=== PATIENT | male | born 1955 | race Caucasian/White ===

== ENCOUNTER 2020-05-01 14:49 | Emergency (ER) | payer OTHER, SELFPAY ==
[2020-05-01 15:02] VITALS: BP 159/84; PULSE 77; RESP 16; TEMP 36.4; O2SAT 98
--- NOTE | 2020-05-01 16:04 | ED_ITS ---
HPI - Wound/Laceration <BRENDA Hare - Last Filed: 05/01/20 16:09> General Chief Complaint: Wound/Laceration Stated Complaint: left hand ring finger cut today Time Seen by Provider: 05/01/20 15:08 Source: patient Mode of arrival: Ambulatory Limitations: no limitations History of Present Illness HPI narrative: The patient is a 64-year-old male nonsmoker who denies pertinent medical history presents with a chief complaint of a laceration to his left hand ring finger. To arrival. Tetanus in the past 2-3 years. Denies any concern for foreign body. States it is a new bleed. States full range of motion. No acute concerns for chip fracture. Review of Systems <BRENDA Hare - Last Filed: 05/01/20 16:09> Review of Systems Narrative: GENERAL: Denies chills, fatigue, malaise, fever, sweats. HEENT: Denies sinus pain, ear pain, sore throat, difficulty swallowing, dizziness. RESPIRATORY: Denies dyspnea, cough, wheezing, hemoptysis, sputum. CARDIOVASCULAR: Denies chest pain, palpitations, orthopnea, edema, GASTROINTESTINAL: Denies nausea, vomiting, abdominal pain, diarrhea, constipation, melena. : Denies dysuria, frequency, incontinence, hematuria, urinary retention. MUSCULOSKELETAL: denies weakness, joint pain, or bony pain SKIN: See HPI NEUROLOGIC: Denies weakness, headache, numbness, change in speech, confusion, seizures, incoordination. PSYCHIATRIC: No concerning psychosocial issues. 12 point review of systems is negative except for those stated above Exam <BRENDA Hare - Last Filed: 05/01/20 16:09> Narrative Exam Narrative: GENERAL: This is a well-nourished, well-developed patient, in no acute distress HEAD: Atraumatic. Normocephalic. No temporal or scalp tenderness. EYES: Pupils equal round and reactive. Extraocular motions intact. No scleral icterus. No injection or drainage. ENT: Nose without bleeding, purulent drainage or septal hematoma. Throat without erythema, tonsillar hypertrophy or exudate. Uvula midline. Airway patent. NECK: Trachea midline. No JVD or lymphadenopathy. Supple, nontender, no meningeal signs. CARDIOVASCULAR: Regular rate and rhythm RESPIRATORY: No cough. No increased respiratory effort. No accessory muscle use. EXTREMITIES: Left 4th digit with 0.5 cm linear laceration to distal phalanx on palmar aspect. No active bleeding. Able to fully flex and extend left 4th digit against resistance. Capillary refill less than 2 seconds. Positive left radial pulse. BACK: Nontender without deformity or crepitance. No flank tenderness. NEURO: AOx3. SKIN: See extremity exam Initial Vital Signs Initial Vital Signs: Vital Signs Temperature 97.5 F L 05/01/20 15:02 Pulse Rate 77 05/01/20 15:02 Respiratory Rate 16 05/01/20 15:02 Blood Pressure 159/84 H 05/01/20 15:02 Pulse Oximetry 98 05/01/20 15:02 <Rosie Mcgarry DO - Last Filed: 05/02/20 08:14> Initial Vital Signs Initial Vital Signs: Vital Signs Temperature 97.5 F L 05/01/20 15:02 Pulse Rate 77 05/01/20 15:02 Respiratory Rate 16 05/01/20 15:02 Blood Pressure 159/84 H 05/01/20 15:02 Pulse Oximetry 98 05/01/20 15:02 Procedures <BRENDA Hare - Last Filed: 05/01/20 16:09> Laceration Repair Laceration 1: Site: hand Size (cm): 0.5 Description: linear Depth: simple, single layer Pre-repair: wound explored and irrigated extensively (cleansed with iodine) Skin layer closed with: steri-strips Scores <BRENDA Hare - Last Filed: 05/01/20 16:09> GCS [place] coma scale eye opening: Spontaneous [place] coma scale verbal response: Orientated [place] coma scale motor response: Obey commands [place] coma scale total score: 15 Course <BRENDA Hare - Last Filed: 05/01/20 16:09> Vital Signs Vital signs: Vital Signs - 8 hr 05/01/20 15:02 Temperature 97.5 F L Pulse Rate 77 Respiratory Rate 16 Blood Pressure 159/84 H Pulse Oximetry 98 <Rosie Mcgarry DO - Last Filed: 05/02/20 08:14> Vital Signs Vital signs: Vital Signs - 8 hr 05/01/20 15:02 Temperature 97.5 F L Pulse Rate 77 Respiratory Rate 16 Blood Pressure 159/84 H Pulse Oximetry 98 MDM - Wound/Laceration <ITA Hare-BC - Last Filed: 05/01/20 16:09> [facility] Narrative Medical decision making narrative: The patient is a 64-year-old male who presents with a chief complaint of laceration just prior to arrival. Tetanus is up-to-date. Closed as per procedural note. Tolerated well. Patient declined x-ray. No active bleeding. Discussed monitor for signs and symptoms of infection as well as keeping his lack clean and dry. Patient has no questions or concerns upon discharge and states understanding of return precautions the Discharge Plan Departure Patient Disposition: Home Clinical Impression: Laceration Instructions: How to Care for a Laceration After Repair, DI for Laceration Repair-Skin Closure Strips Activity Restrictions/Additional Instructions: Thank you for trusting us with Your care today. As discussed, please keep your finger clean and dry. Please monitor for signs of infection such as extending redness, purulent drainage etcetera Please follow-up with primary care provider. Please come back to the emergency department for any acute concerns such as decreased circulation to your finger. Referrals: Hakeem West MD [Primary Care Provider] - <Rosie Mcgarry DO - Last Filed: 05/02/20 08:14> Cosign ED Attending Faribaature Attestation: I was immediately available in the department for consultation. Documentation has been reviewed. I agree with assessment and plan.
== END 2020-05-01 16:18 | disposition home or self-care (01) ==
PROVIDERS: Emergency Provider Nurse Practitioner Family; PCP Family Medicine
DX: S61.215A Laceration without foreign body of left ring finger without damage to nail, initial encounter (principal); X58.XXXA Exposure to other specified factors, initial encounter
CPT/HCPCS: 99282

== ENCOUNTER 2021-12-13 07:17 | Emergency (ER) | payer OTHER, SELFPAY ==
[2021-12-13 07:29] VITALS: BP 176/100; PULSE 63; RESP 16; TEMP 36.3; O2SAT 95; BMI 24.8
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
[2021-12-13 08:50] VITALS: BP 145/80; PULSE 70; RESP 18; O2SAT 98
== END 2021-12-13 08:50 | disposition home or self-care (01) ==
PROVIDERS: Emergency Provider Emergency Medicine; PCP Family Medicine Sports Medicine
DX: S16.1XXA Strain of muscle, fascia and tendon at neck level, initial encounter (principal); V89.2XXA Person injured in unspecified motor-vehicle accident, traffic, initial encounter
CPT/HCPCS: 73030; 99283; 99284

== ENCOUNTER → 2022-01-15 10:22 | Outpatient (CLI) | payer OTHER, SELFPAY ==
--- NOTE | 2022-01-15 | DI.MRI.S_ITS ---
PROCEDURE: MR CERVICAL SPINE WO/W CON INDICATIONS: NECK PAIN TECHNIQUE: Noncontrast sagittal T1 spin echo and T2 fast spin echo, sagittal STIR, foraminal oblique sagittal T2 fast spin echo, axial gradient echo or T2 fast spin echo through the cervical spine. After the administration of contrast, axial and sagittal T1 spin echo with fat saturation through the cervical spine. COMPARISON: None. FINDINGS: Image quality: This examination is limited by involuntary motion artifact. Alignment and curvature: There is overall straightening of the normal cervical lordosis. No focal AP alignment abnormality is seen. Marrow: Marrow is normal in overall signal, without suspicious enhancement. Spinal cord: Visualized spinal cord has normal size and signal. No cerebellar tonsillar herniation. No abnormal intramedullary enhancement. Paraspinous soft tissues: No paravertebral masses or suspicious enhancement. C2-3: The disc height is well-preserved. Loss of disc signal is seen at this level. Reactive marrow endplate changes are seen anteriorly, which are hypointense on T1-weighted imaging and hyperintense on T2 weighted imaging, which is most consistent with edema (Modic type I changes). A mild degree of generalized disc osteophyte complex is seen. There is soue-tn-lvsxwxky right-sided and mild left-sided facet hypertrophy. There is moderate right-sided and no significant left-sided neural foraminal narrowing. Minimal central canal narrowing is seen. C3-4: The disc height is well-preserved. Loss of disc signal is seen at this level. Mild to moderate disc osteophyte complex is seen. Mild to moderate facet hypertrophy is seen. Moderate bilateral neural foraminal narrowing is seen. Mild to moderate central canal narrowing is seen, with associated mild mass effect upon the ventral spinal cord. C4-5: Nwne-ux-xhhnxfux loss of disc height and disc signal can be seen. At least moderate disc osteophyte complex is seen, with a central disc osteophyte protrusion. Uncovertebral joint hypertrophy is seen at this level. Moderate facet hypertrophy is seen, left worse than right. There is moderate to severe bilateral neural foraminal narrowing seen, left worse than right. Moderate to severe central canal narrowing is seen, with associated ventral cord flattening. C5-6: Moderate loss of disc height is seen. Loss of disc signal is seen. Moderate generalized disc osteophyte complex is seen. There is a central/right disc osteophyte protrusion seen. There is erup-qz-rgjakrou right-sided and moderate left-sided facet hypertrophy. There is moderate to severe bilateral neural foraminal narrowing seen. At least moderate central canal narrowing is seen. There is associated mass effect upon the ventral spinal cord. C6-7: Mild loss of disc height is seen. Loss of disc signal is seen. Moderate generalized disc osteophyte complex is seen. There is a central/right disc osteophyte protrusion, which continues into the right neural foramen. Mild to moderate facet hypertrophy is seen. There is moderate to severe right-sided and at least moderate left-sided neural foraminal narrowing. Minimal central canal narrowing is seen. C7-T1: The disc height is well-preserved. Loss of disc signal is seen at this level. No significant neural foraminal or central canal narrowing can be seen. IMPRESSION: Multiple levels of cervical spine degenerative change are seen, which are overall worst at C4-C5 and C5-C6. No abnormal enhancement is seen. Dictated by: Sky Jeter M.D. on 01/15/2022 at 15:00 Approved by: Sky Jeter M.D. on 01/15/2022 at 15:04
--- NOTE | 2022-01-15 | DI.RAD.S_ITS ---
PROCEDURE: XR EYE FOREIGN BODY LT INDICATIONS: BUCKLE IN EYE TECHNIQUE: A single view of the orbits was acquired. COMPARISON: None. FINDINGS: Soft tissues: No metallic foreign bodies are visualized around the orbits. Bones: Bony structures appear unremarkable. Visualized sinuses appear clear. IMPRESSION: No metallic foreign body identified in the region of the orbits. Dictated by: Leandro Turk M.D. on 01/15/2022 at 10:52 Approved by: Leandro Turk M.D. on 01/15/2022 at 10:53
== END ==
PROVIDERS: PCP Family Medicine Sports Medicine; Referring Provider Neurological Surgery; Visit Provider Neurological Surgery
DX: M47.812 Spondylosis without myelopathy or radiculopathy, cervical region (principal); T15.92XA Foreign body on external eye, part unspecified, left eye, initial encounter; M54.2 Cervicalgia; X58.XXXA Exposure to other specified factors, initial encounter
CPT/HCPCS: 70030; 72156; A9579

== ENCOUNTER → 2024-10-06 06:53 | Outpatient (CLI) | payer MEDICARE, SELFPAY ==
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
== END ==
LOC: US 06:53
PROVIDERS: PCP Family Medicine Sports Medicine; Referring Provider Family Medicine Sports Medicine; Visit Provider Family Medicine Sports Medicine
DX: R31.9 Hematuria, unspecified (principal)
CPT/HCPCS: 76770

== ENCOUNTER → 2024-12-01 08:25 | Outpatient (CLI) | payer MEDICARE, SELFPAY ==
--- NOTE | 2024-12-01 08:27 | DI.CT.S_ITS ---
PROCEDURE: CT PELVIS W CON INDICATIONS: 69 y/o M, please eval for prostatic abscess TECHNIQUE: After the administration of intravenous contrast, 5 mm thick sections acquired from the iliac crests to the symphysis. 5 mm coronal and sagittal reformats were acquired. For radiation dose reduction, the following was used: automated exposure control, adjustment of mA and/or kV according to patient size. COMPARISON: None. FINDINGS: Image quality: Diagnostic. PELVIS: Peritoneum and Bowel: Bowel loops demonstrate normal wall thickness and caliber. No free fluid or air. Pelvic Organs: No pelvic mass. Moderate to severe prostatomegaly. No abscess of the prostate identified. Bladder: A Bonilla catheter is in place. There is bladder wall thickening. The bladder is decompressed. Pelvic Nodes: No enlarged lymph nodes. Miscellaneous: No inguinal hernias are seen. Bones: No aggressive osseous abnormality. IMPRESSION: 1. Moderate to severe prostatomegaly without abscess of the prostate. 2. A Bonilla catheter is in place. There is bladder wall thickening. 3. Sigmoid diverticulosis. Dictated by: Imtiaz Charlton M.D. on 12/01/2024 at 9:45 Approved by: Imtiaz Charlton M.D. on 12/01/2024 at 9:47
[2024-12-01 08:51] LABS: Estimated Glomerular Filt Rate > 60 mL/min (>60)
== END ==
PROVIDERS: PCP Family Medicine Sports Medicine; Referring Provider Family Medicine Sports Medicine; Visit Provider Urology
DX: N40.0 Benign prostatic hyperplasia without lower urinary tract symptoms (principal); K57.30 Diverticulosis of large intestine without perforation or abscess without bleeding; R30.0 Dysuria; R33.9 Retention of urine, unspecified; R36.9 Urethral discharge, unspecified
CPT/HCPCS: 36415; 72193; 82565

== ENCOUNTER 2025-01-02 08:58 | Emergency (ER) | payer MEDICARE, SELFPAY ==
[2025-01-02 09:06] VITALS: BP 154/83; PULSE 97; RESP 18; TEMP 36.5; O2SAT 97; BMI 25.1
--- NOTE | 2025-01-02 10:08 | ED_ITS ---
<Statement entered by Feng Seo, - 01/02/25 20:34> Co-sign statement: I was available for consultation during this patient's emergency department visit. This chart is being signed by myself for administrative purposes only. I do not have direct contact with this patient during this visit. They were seen independently by the [facility]. HPI - Recheck/Abnormal Lab/Rx General Chief Complaint: Recheck/Abnormal Lab/Rx Stated Complaint: Get a picc line put in arm , per urologists Time Seen by Provider: 01/02/25 10:08 Source: patient Mode of arrival: Ambulatory Related Data Home Medications ?Medication ?Instructions ?Recorded ?Confirmed metformin 500 mg tablet 500 mg PO DAILY 11/23/2404/22 ramipril 5 mg capsule 5 mg PO TID 11/23/24 5 simvastatin 20 mg tablet 20 mg PO DAILY 11/23/2404/22 Previous Rx's ?Medication ?Instructions ?Recorded levofloxacin 500 mg tablet 500 mg PO DAILY #42 tabs tamsulosin 0.4 mg capsule 0.8 mg (2 x 0.4 mg) PO DAILY #180 12/27/24 caps Allergies Allergy/AdvReac Type Severity Reaction Status Date / Time NKA Allergy Uncoded 01/02/25 09:06 Patient History Medical History Healthy adult Family History Brother CVA (cerebral vascular accident) Diabetes mellitus Hypertension Social History marital status: lives independently: Yes Tobacco: How many years used: 20 alcohol intake: current caffeine: Yes Type(s) of exercise: aerobic and weight lifting frequency: 3-4 times per week duration: > 90 minutes/day Alcohol type: beer Exam Initial Vital Signs Initial Vital Signs: Vital Signs Temperature 97.7 F 01/02/25 09:06 Pulse Rate 97 H 01/02/25 09:06 Respiratory Rate 18 01/02/25 09:06 Blood Pressure 154/83 H 01/02/25 09:06 Pulse Oximetry 97 01/02/25 09:06 Oxygen Delivery Method Room Air 01/02/25 09:06 Course Vital Signs Vital signs: Vital Signs - 8 hr 01/02/25 09:06 Temperature 97.7 F Pulse Rate 97 H Respiratory Rate 18 Blood Pressure 154/83 H Pulse Oximetry 97 Oxygen Delivery Method Room Air Discharge Plan Departure Prescriptions: No Action metformin 500 mg tablet 500 mg PO DAILY simvastatin 20 mg tablet 20 mg PO DAILY ramipril 5 mg capsule 5 mg PO TID levofloxacin 500 mg tablet 500 mg PO DAILY Qty: 42 0RF tamsulosin 0.4 mg capsule 0.8 mg PO DAILY Qty: 180 0RF Referrals: Luis Rice DO [Primary Care Provider, Medical]
--- NOTE | 2025-01-02 12:28 | ED_ITS ---
<Statement entered by Feng Seo, DO - 01/02/25 20:05> Co-sign statement: I was available for consultation during this patient's emergency department visit. This chart is being signed by myself for administrative purposes only. I do not have direct contact with this patient during this visit. They were seen independently by the APC. HPI - Recheck/Abnormal Lab/Rx General Chief Complaint: Recheck/Abnormal Lab/Rx Stated Complaint: Get a picc line put in arm , per urologists Time Seen by Provider: 01/02/25 10:08 Source: patient Mode of arrival: Ambulatory History of Present Illness HPI narrative: Mr. Schofield is a pleasant 69-year-old male with a past medical history of incomplete bladder emptying with 18 Lithuanian coude indwelling Bonilla catheter, ESBL positive UTI, pre-DM who presents to the emergency department for ?placement of PICC line?. Mr. Schofield states that in September of this year he 1st had a Bonilla catheter placed for incomplete bladder emptying and he has been dealing with UTIs since then. He has been on levofloxacin and amoxicillin. He saw Urology Dr. Ayala on 12/27/24 and at that time he had a new catheter placed and was referred to Infectious Disease for treatment of ESBL UTI. Patient's urine culture on 11/28/2024 was positive for ESBL E coli, susceptible only to ertapenem, meropenem, piperacillin/tazobactam. Patient states there was a miscommunication at that time, reports he had been recommended to go to the ER for a PICC line and IV antibiotics but did not at that time. After seeing urology 12/27/24 patient attempted to follow up with infectious disease as he was advised however can not get an appointment for 30 days therefore he has come to the ER today for hopes of a PICC line and treatment of his ESBL UTI. Patient reports that he has been dealing with fatigue and nighttime fevers for many weeks now. States his urine output is cloudy. He is currently taking levofloxacin. No flank pain or hematuria. Related Data Home Medications ?Medication ?Instructions ?Recorded ?Confirmed metformin 500 mg tablet 500 mg PO DAILY 11/23/2404/22 ramipril 5 mg capsule 5 mg PO TID 11/23/24 5 simvastatin 20 mg tablet 20 mg PO DAILY 11/23/2404/22 Previous Rx's ?Medication ?Instructions ?Recorded levofloxacin 500 mg tablet 500 mg PO DAILY #42 tabs tamsulosin 0.4 mg capsule 0.8 mg (2 x 0.4 mg) PO DAILY #180 12/27/24 caps fosfomycin tromethamine 3 gram 3 g PO Q3D 1 dose #1 ea 01/02/25 oral packet Allergies Allergy/AdvReac Type Severity Reaction Status Date / Time NKA Allergy Uncoded 01/02/25 09:06 Review of Systems Review of Systems ROS Unobtainable: All systems reviewed & are unremarkable except as noted in HPI and below Patient History Medical History Healthy adult Family History Brother CVA (cerebral vascular accident) Diabetes mellitus Hypertension Social History marital status: lives independently: Yes Tobacco: How many years used: 20 alcohol intake: current caffeine: Yes Type(s) of exercise: aerobic and weight lifting frequency: 3-4 times per week duration: > 90 minutes/day Alcohol type: beer Exam Narrative Exam Narrative: GENERAL: 69 year old patient appears stated age. Well-developed patient, in no acute distress. HEAD: Atraumatic. Normocephalic. EYES: No scleral icterus. No injection or drainage. NECK: Trachea midline. Cervical ROM intact. CARDIOVASCULAR: Regular rate and rhythm. RESPIRATORY: ?Nonlabored respirations. ?Speaking in clear, full sentences. ?Clear to auscultation. Breath sounds equal bilaterally. No wheezes, rales, or rhonchi. ? GASTROINTESTINAL: Abdomen soft, non-tender, nondistended. Bs present. EXTREMITIES: No LE edema. BACK: No CVA tenderness BL. NEURO: AOx3. ?Clear speech. ?Moves all 4 extremities appropriately. Ambulatory. SKIN: No rash or erythema of visible areas Initial Vital Signs Initial Vital Signs: Vital Signs Temperature 97.7 F 01/02/25 09:06 Pulse Rate 97 H 01/02/25 09:06 Respiratory Rate 18 01/02/25 09:06 Blood Pressure 154/83 H 01/02/25 09:06 Pulse Oximetry 97 01/02/25 09:06 Oxygen Delivery Method Room Air 01/02/25 09:06 Course Orders Ordered: ED Orders 01/02/25 12:55 Consult to EQUIPMENT MONITOR PHOTOTYPESETTING - Pomology Teacher Stat 01/02/25 13:45 Blood Culture Stat CBC Auto Diff [Complete Blood Count AUTO DIFF] Stat CMP [Comprehensive Metabolic Panel] Stat CRP [C-Reactive Protein Quant] Stat ESR [Erythrocyte Sedimentation Rate] Stat Lactate (Lactic Acid) Stat 01/02/25 13:55 Urinalysis and Microscopic Stat Urine Culture Stat Discontinued Medications Lidocaine HCl (Lidocaine 2% (Glydo) 6 Ml Gel) 6 ml TOP NOW ONE Stop: 01/02/25 15:15 Last Admin: 01/02/25 15:20 Dose: 6 ml Vital Signs Vital signs: Vital Signs - 8 hr 01/02/25 14:43 01/02/25 17:02 Pulse Rate 75 85 Respiratory Rate 18 Blood Pressure 115/63 131/77 Pulse Oximetry 96 96 Oxygen Delivery Method Room Air Room Air MDM - Recheck/Abnormal Lab/Rx Medical Records Attestation: I reviewed the patient's medical records. Lab Data 01/02/25 13:45 01/02/25 13:45 Labs: Lab Results 01/02/25 01/02/25 Range/Units 13:45 13:55 WBC 4.0 L (4.5-11.0) X10^3/uL RBC 4.24 L (4.5-5.9) X10^6/uL Hgb 13.4 L (13.5-17.5) g/dL Hct 39.5 L (41-53) % MCV 93.2 (80-100) fL MCH 31.6 (26-34) PG MCHC 33.9 (30-36) % RDW 13.8 (11.6-14.8) % Plt Count 191 (150-400) X10^3/uL Neut % (Auto) 46.3 L (50-75) % Lymph % (Auto) 32.3 (25-40) % Beadle % (Auto) 10.7 (3-14) % Eos % (Auto) 10.1 H (2-4) % Baso % (Auto) 0.6 (0-2) % Neut # (Auto) 1900 (6923-2656) /uL Lymph # (Auto) 1300 (6783-5033) /uL Beadle # (Auto) 400 (0-900) /uL Eos # (Auto) 400 (0-450) /uL Baso # (Auto) 0 (0-100) /uL ESR 15 (0-15) MM/HR Sodium 137 (137-145) mmol/L Potassium 4.1 (3.4-5.1) mmol/L Chloride 103 (98-107) mmol/L Carbon Dioxide 25 (22-32) mmol/L BUN 19 (9-20) mg/dL Creatinine 0.64 L (0.66-1.25) mg/dL Estimated GFR > 60 (>60) mL/min BUN/Creatinine Ratio 29.7 H (6-22) Glucose 161 H (70-99) mg/dL Lactate 1.9 (0.7-2.1) mmol/L Calcium 8.9 (8.4-10.2) mg/dL Total Bilirubin 0.6 (0.2-1.3) mg/dL AST 29 (17-59) IU/L ALT 23 (<50) IU/L Alkaline Phosphatase 73 (38-126) U/L C-Reactive Protein < 0.5 (<1.0) mg/dL Total Protein 6.6 (6.3-8.2) g/dL Albumin 4.1 (3.5-5.0) g/dL Globulin 2.5 (1.7-4.1) g/dL Albumin/Globulin Ratio 1.6 (1.0-2.8) Urine Color Yellow Urine Appearance Clear Urine pH 6.0 (4.5-8.0) Ur Specific [place] 1.020 (1.000-1.035) Urine Protein 2+ H (Negative) Urine Glucose (UA) Negative (Negative) g/dL Urine Ketones Negative (NEGATIVE) Urine Occult Blood 3+ H (Negative) Urine Nitrate Negative (Negative) Urine Bilirubin Negative (NEGATIVE) Urine Urobilinogen 1.0 (0.2) E.U./dL Ur Leukocyte Esterase 2+ H (NEGATIVE) Urine RBC 1-5/hpf (0-5/HPF) Urine WBC 30-100/hpf H (0-5/HPF) Ur Squamous Epith Cells None seen (0-5/HPF) Urine Bacteria Moderate (10-30) H (None) Ur Culture Indicated? Specimen cultured Vol Urine Centrifuged Low vol <10ml (spun) A MDM Narrative Medical decision making narrative: 69-year-old male with a past medical history of incomplete bladder emptying with 18 Lithuanian coude indwelling Bonilla catheter, ESBL positive UTI, pre-DM who presents to the emergency department for ?placement of PICC line?. Differential diagnosis includes but is not limited to ESBL UTI, bacteremia, etc. On exam patient is in no acute distress, nontoxic appearing, vital signs in triage appropriate with mildly elevated heart rate 97. Patient has had 2 outpatient urine cultures revealing ESBL E coli susceptible only to ertapenem, meropenem, Zosyn. He has been on oral Levaquin. He has been experiencing cloudy urine in his Bonilla catheter and nighttime fevers for many weeks now. Urology Dr. Ayala referred to Infectious Disease for PICC and IV antibiotics however patient is unable to see infectious disease at [facility] for over a month. Therefore he was advised to come to the ER to expedite this process. I called and spoke with Dr. Ayala who clarified everything for me, states that patient does not need another urine culture today, Dr. Ayala is unable to order the outpatient PICC line or antibiotics and recommends that patient be admitted to the hospital if this can not be set up outpatient. I touch base with the hospitalist, Dr. Hollingsworth, who agrees with this plan, recommends getting case management involved to see if patient can be set up for outpatient infusions. I spoke with pharmacy, James, who recommends ertapenem as this is dose 1 g once daily and would be the easiest outpatient option. Plan to obtain CBC, CMP, lactic, inflammatory markers, blood cultures. We will try to consult with Infectious Disease to figure out a plan for either inpatient or outpatient management. Lab work reassuring with normal/slightly low WBC count 4.0, hemoglobin 13.4, platelets 191. Sodium 137, potassium 4.1, BUN 19 creatinine 0.64. Glucose 161. Negative ESR, CRP. 1430: Discussed case with [facility] infectious disease Dr. Marily Canales. She will call back, suspects patient is not having an infection but may be colonized. 1455: Discussed case again with [facility] infectious disease Dr. Marily Canales. She does not suspect patient is having active infection but is having colonization, does not want him admitted or IV antibiotics or PICC line at this time as patient has reassuring vital signs, lab work. She spoke with her office and they we will get the patient scheduled this week for an appointment, likely Wednesday 1:30 p.m., her medical assistance we will call the patient. She recommended the patient stop Levaquin as it is resistant. She does not recommend any antibiotics at this time however if possible she does advise a catheter exchange with a clean urine. If any antibiotics are warranted right now due to patient concern or urinalysis, she recommends fosfomycin 3 g once with the understanding this is not listed on the urine culture could potentially still be resistant. She recommends the patient go home, only return to the ER if he has documented fevers, shaking chills, severe flank pain or other concerns. Patient would like to proceed with catheter exchange for fresh urine sample/culture. I did call Dr. Ayala, urology, back and updated him on the plan of care, he is OK with the pt having his catheter exchanged in the ER and supports infectious diseases antibiotic decisions. Catheter exchanged by nursing staff without difficulty. Clean urine sample was sent for micro and culture, it does reveal bacteria, white blood cells, no nitrites. After shared decision-making with the patient, I did prescribe him 3 g of fosfomycin which she would like to take tomorrow, discontinue levofloxacin, stressed the importance of answering phone caused as he will be scheduled for infectious disease appointment this week. We discussed very strict ER return precautions including but not limited to fever, chills, flank pain, abdominal pain, any new or worsening symptoms, or other concerns. Patient his verbalized understanding of all information and are agreeable with the plan. He is ambulatory and stable for discharge home, VS WNL. Discharge Plan Departure Patient Disposition: Home Clinical Impression: ESBL E. coli carrier, Chronic indwelling Bonilla catheter Instructions: DI for Extended Spectrum Beta-Lactamase Infection Activity Restrictions/Additional Instructions: Dear Mr. Schofield, Thank you for coming to the emergency department. Today you were evaluated for outpatient urine culture revealing ESBL infection only susceptible to IV antibiotics. I spoke with your urologist, Dr. Ayala, and [facility] infectious disease Dr. Marily Canales, multiple times today about your case. The infectious disease office is going to call you to schedule an appointment this week. At this time, Infectious Disease would like you to stop taking levofloxacin. You have been prescribed an oral antibiotic called to fosfomycin, to take 1 time, as we discussed. At your infectious disease appointment, they will discuss further management options for you. However is essential that you return to the ER immediately if you develop fevers 100.4 ? F or higher, shaking chills, flank pain, or any other new or worsening or concerning symptoms. Please follow up with your primary care doctor within the next 2-3 days for ER follow-up. (If you do not have a PCP you can call [phone]. ?to schedule an appointment with an [facility] Primary Care Provider) IF YOU DEVELOP ANY NEW OR WORSENING SYMPTOMS, RETURN TO THE ER! Please read the attached instructions, they highlight more specific treatments and interventions for you at home. Thank you for letting me participate in your care, Yokasta Lyman PA-C Prescriptions: New fosfomycin tromethamine 3 gram packet 3 g PO Q3D Qty: 1 0RF No Action metformin 500 mg tablet 500 mg PO DAILY simvastatin 20 mg tablet 20 mg PO DAILY ramipril 5 mg capsule 5 mg PO TID levofloxacin 500 mg tablet 500 mg PO DAILY Qty: 42 0RF tamsulosin 0.4 mg capsule 0.8 mg PO DAILY Qty: 180 0RF Referrals: Luis Rice DO [Primary Care Provider, Medical] Stand Alone Forms: Patient Portal/API
[2025-01-02 13:58] LABS: Add Manual Diff / Slide Review NO; Hematocrit 39.5 % (41-53); Hemoglobin 13.4 g/dL (13.5-17.5); Lymphocytes Absolute Auto 1300 /uL (1100-4500); Mean Corpuscular HGB Conc 33.9 % (30-36); Mean Corpuscular Hemoglobin 31.6 PG (26-34); Mean Corpuscular Volume 93.2 fL (80-100); Platelet Count 191 X10^3/uL (150-400)
[2025-01-02 14:08] LABS: Alanine Aminotransferase 23 IU/L (<50); Albumin 4.1 g/dL (3.5-5.0); Albumin Globulin Ratio 1.6 (1.0-2.8); Alkaline Phosphatase 73 U/L (38-126); Blood Urea Nitrogen 19 mg/dL (9-20); Calcium 8.9 mg/dL (8.4-10.2); Carbon Dioxide 25 mmol/L (22-32); Chloride 103 mmol/L (98-107); Estimated Glomerular Filt Rate > 60 mL/min (>60); Globulin 2.5 g/dL (1.7-4.1); Glucose 161 mg/dL (70-99); HEMOLYSIS 24 (0-50); Potassium 4.1 mmol/L (3.4-5.1); Sodium 137 mmol/L (137-145); Total Protein 6.6 g/dL (6.3-8.2)
[2025-01-02 14:09] LABS: Lactate (Lactic Acid) 1.9 mmol/L (0.7-2.1)
[2025-01-02 14:43] VITALS: BP 115/63; PULSE 75; O2SAT 96
--- NOTE | 2025-01-02 15:08 | CM.SWNOTE ---
ED GSE MECHANIC Note ED provider initially consults GSE MECHANIC to assist with coordination of setting up outpatient IV antibiotics, after ED provider consults with infectious disease it is reported that IV antibiotics are not recommended at this time and the [facility] clinic can see patient this week. ED GSE MECHANIC consult no longer needed at this time. Patient to d/c to home upon medical clearance, patient to f/u with infectious disease outpatient clinic. KIMBERLY HawkinsSW
[2025-01-02] MEDS: LIDOCAINE 2% (GLYDO) 6 ML GEL TOP (15:20)
[2025-01-02 16:08] LABS: Appearance Urine UA CLEAR; Bilirubin Urine UA NEGATIVE (NEGATIVE); Color Urine UA YELLOW; Glucose Urine UA NEGATIVE (Negative); Ketones Urine UA NEGATIVE (NEGATIVE); Leukocyte Esterase Urine UA 2+ (NEGATIVE); Nitrite Urine UA NEGATIVE (Negative); Occult Blood Urine UA 3+ (Negative); Protein Urine UA 2+ (Negative); Specific Gravity Urine UA 1.020 (1.000-1.035); Urobilinogen Urine UA 1.0 E.U./dL (0.2); pH Urine UA 6.0 (4.5-8.0)
--- NOTE | 2025-01-02 16:13 | PC.NURSE ---
Patient came in with 18F coude catheter that was placed elsewhere. [facility] ordered to remove this catheter and replace with new one. New 18F coude clinton catheter placed by this RN today 01/02/25.
[2025-01-02 16:19] LABS: Culture Indicated Urine Specimen Cultured
[2025-01-02 17:02] VITALS: BP 131/77; PULSE 85; RESP 18; O2SAT 96
== END 2025-01-02 17:04 | disposition home or self-care (01) ==
PROVIDERS: Emergency Provider Physician Assistant; PCP Family Medicine Sports Medicine
DX: R53.83 Other fatigue (principal); R50.9 Fever, unspecified; Z22.358 Carrier of other Enterobacterales; Z97.8 Presence of other specified devices
CPT/HCPCS: 36415; 80053; 81001; 83605; 85025; 85651; 86140; 87040; 87077; 87086; 87186; 99282; 99283

== ENCOUNTER → 2025-01-24 13:59 | Outpatient (CLI) | payer MEDICARE, SELFPAY | PROVIDERS: PCP Family Medicine Sports Medicine; Visit Provider Urology | DX: R33.9 Retention of urine, unspecified (principal); R30.0 Dysuria | CPT/HCPCS: 51798; 81002; 87086; 99213 ==

== ENCOUNTER → 2025-02-15 08:09 | Outpatient (CLI) | payer MEDICARE, SELFPAY | PROVIDERS: PCP Family Medicine Sports Medicine; Visit Provider Urology | DX: A49.9 Bacterial infection, unspecified (principal); Z16.12 Extended spectrum beta lactamase (ESBL) resistance; R33.9 Retention of urine, unspecified | CPT/HCPCS: 87086 ==

== ENCOUNTER 2025-02-27 06:02 | Day surgery (SDC) | payer MEDICARE, SELFPAY ==
[2025-02-12 15:55] VITALS: BMI 24.3
[2025-02-13 07:30] VITALS: BMI 24.3
[2025-02-27] VITALS (9 sets, daily range): BP systolic 122–176; BP diastolic 73–102; PULSE 67–84; RESP 14–22; TEMP 36.1–36.6; O2SAT 92–98
[2025-02-27] MEDS: ACETAMINOPHEN 325 MG TABLET 975 MG PO (07:08)
[2025-02-27] MEDS: LACTATED RINGERS 1,000 ML 42 ML IV (07:08)
--- NOTE | 2025-02-27 07:34 | PM.PREOP ---
Pre-operative Note COVID-19 COVID-19 status: Not tested Interval Note History & Physical reviewed/Exam performed by Physician: Yes Changes to H&P: No
--- NOTE | 2025-02-27 08:15 | SUR.OPER ---
Lithotomy on padded OR bed, head on pillow, arms secured on padded arm boards at <90 degrees abduction. Legs secured in padded yellow fins stirrups.
--- NOTE | 2025-02-27 08:16 | SUR.OPER ---
Bonilla removed prior to prep
--- NOTE | 2025-02-27 10:06 | P.OP_ITS ---
Operative Date/Time/Diagnoses Date of procedure: 02/27/25 Time of procedure: 08:15 Pre-op diagnosis: Benign prostatic hyperplasia with lower urinary tract symptoms Post-op diagnosis: same Procedure & Clinicians Procedure: Cystoscopy Aquablation Same procedure(s) as scheduled: Yes Indications: 69 y/o M noted to have incomplete bladder emptying on a RBUS that was performed in mid September 2024 for evaluation of gross hematuria. Discussed that his CT Pelvis was negative for a prostatic abscess. He has been evaluated by ID with placement of a PICC and is completing a 4 week course of Ertapenem. Discussed that his PVR was roughly 750 cc's on that study and that he had no hydronephrosis or nephrolithiasis bilaterally. Noted to have symptoms consistent with BPH and LUTS. Discussed treatment options to include observation vs continuing with his Tamsulosin 0.8mg daily. Discussed mechanism of action and expected side effects to include orthostatic hypotension, nasal congestion and retrograde ejaculation. Also discussed the possible addition of Finasteride 5mg daily (discussed possible side effects to include decreased libido, worsening erectile dysfunction, loss of ejaculate volume as well as painful breast development or nipple tenderness), or a lower urinary tract evaluation prior to a bladder outlet procedure. Discussed absolute indications for treatment either medically or surgically to include: urinary retention, development of large bladder stones, refractory gross hematuria, recurrent urinary tract infections and renal dysfunction. Discussed that he could also continue with his clinton catheter exchanges or voiding trial every 30 days. His cystoscopy and TRUS prostate were notable for coaptating lateral prostatic lobes w/ a moderate sized intravesical median lobe and a TRUS volume of 141 cc. Discussed that he otherwise would be a candidate for Aquablation. Discussed risks of the procedure to include but not limited to pain, bleeding, infection, injury to urethra/bladder/either ureteral orifice, clot retention, irritative voiding symptoms for several months following the procedure, urinary incontinence, erectile dysfunction, retrograde ejaculation, need for open emergent repair of any bladder or ureteral injuries, urethral stricture or bladder neck contracture development, need for repeat procedures. Discussed that we will repeat his cystoscopy in 3 months to ensure he does not have bladder cancer and merely had erythematous and inflammatory changes secondary to his infections and catheter. Surgeon: Garo Ayala Assisted?: No Anesthesia Type: General Operative Notes Findings: Coaptating lateral prostatic lobes, large intravesical median lobe, large prostate Closure Type: not applicable Specimen(s): other (prostate chips) Applied: catheter Estimated Blood Loss (mL): 50 Blood products transfused: none Procedure in detail: After informed consent was obtained, the patient was identified brought to the operating room where he was placed in his supine position on the table.? Once there anesthesia was induced and maintained.? Ensuring an adequate level of anesthesia the patient was transitioned to the lithotomy position where after time-out he was prepped.? After prepping, ensuring an adequate level of anesthesia, administration IV antibiotics and time-out 60 cc of ultrasound gel was instilled within the rectum and the ultrasound probe which had been attached to the TRUS stepper which was attached to the TRUS stepper articulating arm which was secured to the bed was advanced into the rectum under direct vision via the ultrasound.? The ultrasound probe was then aligned and confirmation made that the prostate was centered and aligned in both the sagittal and transverse views.? The bladder neck, verumontanum, central and transitional zones were identified.? With the ultrasound in place and adjusted the patient was then draped in a sterile fashion. With the patient draped the 24 [place] aqua beam handpiece was then inserted through the urethra and advanced into the bladder.? Cystoscopy was then performed and no concerning bladder mass or lesions were noted.? Bilateral ureteral orifices were noted to be orthotopic in nature.? As the cystoscope was advanced the level of the sphincter, verumontanum, bladder neck were all identified via ultrasound and under direct vision.? The aqua beam hand place was then secured to the handpiece articulating arm which had been secured to the bed.? The Aquablation handpiece and TRUS probe were confirmed to be parallel and colinear.? Confirmation was then made that the aqua beam handpiece and nozzle was centered and anterior to the bladder neck.? The cystoscope was then retracted under direct vision in the sphincter and verumontanum were identified.? The tip of the cystoscope was then placed proximal to the external sphincter.? Compression was applied with the TRUS probe to the prostate.? The alignment of the TRUS probe and aqua beam handpiece was once again confirmed.? Horizontal alignment of the handpiece water jet was then performed.? With these adjustments made, the treatment zones were then planned using real-time ultrasound.? In the largest transverse view of the prostate the depth and radial angles were determined and set again in the transverse view of the prostate.? In the longitudinal and sagittal view the Aquablation nozzle was identified and its position registered with the software and robot.? The treatment contours were then determined and adjusted to reflect the intended margins of resection.? Following our plan confirmation, the Aquablation resection treatment was started.? A 2nd pass was then completed in similar fashion after the 1st pass had been completed.? At this point, the Aqua hand piece was removed from the urethra. The 26Fr resectoscope was then inserted into the urethra and cystoscopy was repeated.? The Elik manager marketing sales was utilized to evacuate the blood clots from the bladder.? The bladder neck was then resected using the bipolar Gyrus loop.? Bilateral ureteral orifices were again identified and noted to be intact at case end.? Hemostasis was obtained and noted to be excellent at case end.? The resectoscope was then removed and a 24Fr Sg 3-way hematuria catheter was inserted through the urethra and into the bladder.? 45cc of sterile water was utilized for balloon insufflation.? Efflux was noted to be clear at case end.? Anesthesia was reversed, he was extubated in the OR and transferred to the PACU in stable condition for recovery. Complications: none Post-operative Condition: stable Disposition: PACU Plan for aftercare: Will continue to run CBI for a few hours to evaluate the efflux from his catheter.? Should it remain relatively clear and with minimal blood clots, will discharge home with catheter in place and have him return to Urology clinic in 2 days for a voiding trial.? Should his efflux remain red or have significant clot burden, will admit overnight for observation and continued CBI.
[2025-02-27] MEDS: ONDANSETRON 4 MG/2 ML INJ IV (12:30)
== END 2025-02-27 14:41 | disposition home or self-care (01) ==
PROVIDERS: PCP Family Medicine Sports Medicine; Referring Provider Urology; Visit Provider Urology
PROC: 0VT08ZZ Resection of Prostate, Via Natural or Artificial Opening Endoscopic (ICD-10-PCS; CPT 0421T; principal; 2025-02-27 07:45)
DX: N40.1 Benign prostatic hyperplasia with lower urinary tract symptoms (principal); R39.14 Feeling of incomplete bladder emptying; R35.1 Nocturia; R35.0 Frequency of micturition
CPT/HCPCS: 0421T; 82962; C2596; J0689; J1100; J1171; J2405; J2704; J3010; J7120

== ENCOUNTER → 2025-03-01 15:15 | Outpatient (CLI) | payer MEDICARE, SELFPAY | PROVIDERS: PCP Family Medicine Sports Medicine; Visit Provider Urology | DX: R39.9 Unspecified symptoms and signs involving the genitourinary system (principal) | CPT/HCPCS: 87077; 87086 ==